=== PATIENT | female | born 1985 | race American Indian/Alaskan Native ===

== ENCOUNTER 2016-12-04 14:29 | Emergency (ER) | payer SELFPAY ==
[2016-12-04 15:18] VITALS: BP 134/85
--- NOTE | 2016-12-04 20:18 | Emergency Department Report ---
HPI - General Chief Complaint: Upper Respiratory Infection Time Seen by Provider: 12/04/16 19:10 - HPI HPI: Patient here reports that she's been having sore throat and congestion for the last 2 days. She said her son has been diagnosed with strep and taking clindamycin. She denies any fever but reports that she has chills and her neck is painful. Denies any nausea or vomiting. Denies any drooling. Denies any difficulty breathing or chest pain. Denies any cough or wheezing. Pain is 4 out of 10 and worse with swallowing. She says she took [id number] pain medication which helped a little. Denies any headache. ED Past Medical Hx - Past Medical History Previous Medical History?: No Hx Hypertension: No Hx Diabetes: No Hx Deep Vein Thrombosis: No Hx Renal Disease: No Hx Sickle Cell Disease: No Hx Seizures: No Hx Asthma: No Hx HIV: No - Surgical History Past Surgical History?: No - Family History Family history: hypertension - Social History Smoking Status: Never Smoker Substance Use Type: None - Medications Home Medications: Home Medications Medication Instructions Recorded Confirmed Last Taken Type Amoxicillin [Trimox CAP] 500 mg PO Q8H #30 capsule 05/03/14 Unknown Rx Nitrofurantoin [place]/M-Cryst 100 mg PO Q12HR #14 capsule 04/24/15 Unknown Rx [Macrobid CAP] Ondansetron [Zofran Odt] 4 mg PO TID #15 tab.rapdis 04/24/15 Unknown Rx Phenazopyridine [Pyridium] 100 mg PO TID #6 tab 04/24/15 Unknown Rx HYDROcodone/APAP 5-325 [[place] 1 each PO Q6HR PRN #10 tablet 05/29/15 Unknown Rx 5-325 mg TAB] Ibuprofen [Motrin] 600 mg PO Q8H PRN #15 tablet 12/04/16 Unknown Rx Penicillin Vk [Veetids TAB] 500 mg PO TID #60 tablet 12/04/16 Unknown Rx ED Review of Systems ROS: Stated complaint: SORE THROAT Other details as noted in HPI Comment: All other systems reviewed and negative Constitutional: chills. denies: fever, weakness ENT: throat pain, congestion. denies: ear pain Respiratory: no symptoms reported Cardiovascular: denies: chest pain, palpitations, edema, syncope Gastrointestinal: denies: abdominal pain, nausea, vomiting Musculoskeletal: denies: back pain, arthralgia Skin: denies: rash Neurological: denies: headache, weakness, numbness, paresthesias, confusion, abnormal gait, vertigo Physical Exam - Physical Exam Vital Signs: Vital Signs 12/04/16 15:15 Temperature 97.7 F Pulse Rate 82 Respiratory 16 Rate Blood Pressure 134/85 O2 Sat by Pulse 100 Oximetry General: General: This is a 31-year-old female well-nourished well-developed in no acute distress. Physical Exam: Head: Normocephalic atraumatic Mouth: moist,Positive pharyngeal exudate and erythema. Uvula is midline and oral airway is patent. No facial swelling. No peritonsillar abscesses. No drooling Nose: Nasal turbinates normal .no Congestion or erythema to mucosa. Maxillary and frontal sinuses nontender to palpate Neck: Supple, no C-spine tenderness, no tracheal deviation. Nontender to palpate. positive anterior cervical adenopathy Ears: Bilateral TMs pearly paulino. Bilateral EAC without any redness swelling or drainage. Abdomen: Soft, nontender to palpate in all quadrants, normal bowel sounds in all quadrant and negative CVA tenderness bilaterally. Eyes: Bilateral pupils equal and reactive to light, bilateral EOM intact. Bilateral sclera and conjunctiva without injection. Normal accommodation. Lungs: Cleart to auscultate bilaterally no rhonchi wheezes or rales. Normal work of breathing extremity; No CCE. +2 pulses. No neurovascular compromise Cardiovascular: S1-S2, regular rate rhythm. No murmurs. Skin: clean Dry and intact no rash no lesions Psych: Normal mood and behavior ED Course Vital Signs 12/04/16 15:15 Temperature 97.7 F Pulse Rate 82 Respiratory 16 Rate Blood Pressure 134/85 O2 Sat by Pulse 100 Oximetry - Reevaluation(s) Reevaluation #1: 12/04/16 21:48 Patient stable throughout ED course. She was given Motrin 800 mg in emergency room which relieved her sore throat. ED Medical Decision Making - Medical Decision Making ED course: Based on [facility] criteria patient positive strep. Exudative, erythema Pharynx with enlarged lymph nodes and exposed to strep from her son who tested positive. Patient given Motrin 800 mg in emergency room which relieved her sore throat. Discharged home with prescription for penicillin and Motrin and to follow-up with primary care physician in 3 days. Critical care attestation.: If time is entered above; I have spent that time in minutes in the direct care of this critically ill patient, excluding procedure time. ED Disposition Clinical Impression: Exudative pharyngitis Disposition: DISCHARGED TO HOME OR SELFCARE Is pt being admited?: No Does the pt Need Aspirin: No Condition: Stable Instructions: Strep Throat (ED) Additional Instructions: Take antibiotic as prescribed. Primary care physician in 3 days and if he did not have one. Follow-up with [facility]. Prescriptions: Ibuprofen [Motrin] 600 mg PO Q8H PRN #15 tablet PRN Reason: Pain Penicillin Vk [Veetids TAB] 500 mg PO TID #60 tablet Referrals: PRIMARY CARE, [Primary Care Provider] - 12/07/16 [facility] [Outside] - 12/04/16 9:52 pm Forms: Accompanied Note, Work/School Release Form(ED)
[2016-12-04] MEDS ORDERED: MOTRIN PO ONE (20:20)
== END 2016-12-04 23:08 | disposition home or self-care (01) ==
LOC: ED 14:29
DX: J02.9 Acute pharyngitis, unspecified (principal)
CPT/HCPCS: 99282